=== PATIENT | female | born 2000 | race Caucasian/White ===

== ENCOUNTER 2023-07-21 11:03 | Emergency (ER) | payer BC ==
[~2023-07-21] VITALS: Ht 167.6 cm; Wt 106.6 kg
[2023-07-21 11:26] VITALS: BP 146/92
[2023-07-21] MEDS ORDERED: HYDR10 (11:28)
[2023-07-21 11:35] LABS: Source, Urine Clean Catch
[2023-07-21 11:38] LABS: Appearance, Urine Clear (Clear); Blood, Urine 2+ (Neg); Glucose Qualitative, Urine Neg (Neg); Ketones, Urine Neg (Neg); Leukocyte Esterase, Urine Neg (Neg); Nitrite, Urine Pos (Neg); Protein, Urine 2+ (Neg); Specific Gravity, Urine 1.015 (1.003-1.022); Urobilinogen, Urine 3+ (Normal)
[2023-07-21 11:49] LABS: Bilirubin, Urine 3+ (Neg); Color, Urine Amber (P-Yellow)
[2023-07-21 11:51] LABS: White Blood Cells, Urine 25-50 /hpf (0-5)
[2023-07-21 11:52] LABS: Bacteria Many /hpf; Squamous Epithelial Cells Mod /hpf (Few)
[2023-07-21 11:54] LABS: Transitional Epithelial Cells Rare /hpf (0-Rare)
[2023-07-21 11:55] LABS: Amorphous Light (0-Heavy)
== END 2023-07-21 12:20 | disposition home or self-care (01) ==
LOC: ER 11:03
PROVIDERS: Physician Assistant
DX: N39.0 Urinary tract infection, site not specified (principal); Z88.1 Allergy status to other antibiotic agents; Z79.899 Other long term (current) drug therapy
CPT/HCPCS: 81001; 81025; 87077; 87086; 87186; 99283; A9270

== ENCOUNTER → 2024-07-04 | Outpatient (CLI) | payer BC ==
[~2024-07-04] MED LIST: HYDR10
== END ==
LOC: LAB SHORT 17:50 → LAB 17:50
DX: R30.0 Dysuria (principal)
CPT/HCPCS: 87086